=== PATIENT | male | born 1995 | race American Indian/Alaskan Native ===

== ENCOUNTER 2021-01-29 01:11 | Emergency (ER) | payer SELFPAY ==
[2021-01-29] MEDS: hydrALAZINE 20 MG/1 ML INJ IV ONE (04:40)
[2021-01-29 05:01] LABS: Bilirubin,Urine NEG (Negative); Blood,Urine SM (Negative); Color,Urine Straw (Yellow); Urobilinogen,Urine < 2.0 mg/dL (<2.0); WBC,Urine < 1.0 /HPF (0.0-6.0)
--- NOTE | 2021-01-29 05:02 | XRay Report ---
. XR chest 1V ap INDICATION / CLINICAL INFORMATION: weakness. COMPARISON: None available. FINDINGS: SUPPORT DEVICES: None. HEART /PULMONARY VASCULATURE: No significant abnormality. LUNGS / PLEURA: No significant pulmonary or pleural abnormality. No pneumothorax. ADDITIONAL FINDINGS: No significant additional findings. IMPRESSION: 1. No acute findings. Signer Name: Edwin Mcadams MD Signed: 01/29/2021 4:57 AM Workstation Name: [id number]
[2021-01-29 06:03] LABS: Basophils % (Auto) 0.5 % (0.0-1.8); Eosinophils # (Auto) 0.1 K/mm3 (0.0-0.4); Eosinophils % (Auto) 1.3 % (0.0-4.3); Hematocrit 45.3 % (35.5-45.6); Hemoglobin 14.9 gm/dl (11.8-15.2); Lymphocytes # (Auto) 4.3 K/mm3 (1.2-5.4); Lymphocytes % (Auto) 47.5 % (13.4-35.0); Mean Corpuscular HGB Conc 33 % (32-34); Mean Corpuscular Volume 83 fl (84-94); Monocytes # (Auto) 0.5 K/mm3 (0.0-0.8); Platelet Count 198 K/mm3 (140-440); Red Blood Count 5.47 M/mm3 (3.65-5.03); Red Cell Distribution Width 13.7 % (13.2-15.2)
[2021-01-29 06:24] LABS: Alanine Aminotransferase 24 units/L (7-56); Albumin 4.5 g/dL (3.9-5); BUN/Creatinine Ratio 12; Blood Urea Nitrogen 21 mg/dL (9-20); Calcium 9.7 mg/dL (8.4-10.2); Hemolysis Index 11
--- NOTE | 2021-01-29 06:27 | Emergency Department Report ---
<PATIENCE BARNHART - Last Filed: 01/29/21 06:47> ED General Adult HPI - General Chief complaint: Urogenital-Male Stated complaint: PENIS IS BLEEDING Source: patient Mode of arrival: Ambulatory Limitations: No Limitations - History of Present Illness Initial comments: Patient is a 25-year-old -[place] male with a history of poorly controlled hypertension who presents to the ED with complaint of acute onset persistent hematuria intermittently for the last 8 hours. Patient states that he has had 2 episodes of hematuria with no pain. Patient states that he has never been prescribed any blood pressure medications although he always has chronic hypertension. Patient denies dysuria, urinary frequency and urgency, low back pain, abdominal pain, testicular pain, fever, chills, cough, chest pain, shortness of breath, headache, dizziness, syncope, lightheadedness, back pain, traumatic injury, heavy lifting or or change in vision. MD Complaint: Hematuria; elevated blood pressure -: Sudden, hour(s) (8) Location: head, genitals Radiation: non-radiation Severity scale (0 -10): 0 Quality: dull Consistency: intermittent Improves with: none Worsens with: none Associated Symptoms: other (Hematuria). denies: denies other symptoms, confusion, chest pain, cough, diaphoresis, fever/chills, headaches, loss of appetite, nausea/vomiting, rash, shortness of breath, syncope, weakness Treatments Prior to Arrival: none - Related Data Previous Rx's Medication Instructions Recorded Last Taken Type amLODIPine 10 mg PO DAILY #30 tab 01/29/21 Unknown Rx Allergies Allergy/AdvReac Type Severity Reaction Status Date / Time No Known Allergies Allergy Verified 01/29/21 04:49 ED Review of Systems Constitutional: other (Elevated blood pressure). denies: chills, fever Eyes: denies: eye pain, eye discharge, vision change ENT: denies: ear pain, throat pain Respiratory: denies: cough, shortness of breath, wheezing Cardiovascular: denies: chest pain, palpitations Endocrine: no symptoms reported Gastrointestinal: denies: abdominal pain, nausea, diarrhea Genitourinary: hematuria. denies: urgency, dysuria, frequency, discharge, testicular pain, testicular mass Musculoskeletal: denies: back pain, joint swelling, arthralgia Skin: denies: rash, lesions Neurological: denies: headache, weakness, paresthesias Psychiatric: denies: anxiety, depression Hematological/Lymphatic: denies: easy bleeding, easy bruising ED Past Medical Hx - Past Medical History Previous Medical History?: No - Surgical History Past Surgical History?: No - Medications Home Medications: Home Medications Medication Instructions Recorded Confirmed Last Taken Type amLODIPine 10 mg PO DAILY #30 tab 01/29/21 Unknown Rx ED Physical Exam - General Limitations: No Limitations General appearance: alert, in no apparent distress - Head Head exam: Present: atraumatic, normocephalic, normal inspection - Eye Eye exam: Present: normal appearance, PERRL, EOMI Pupils: Present: normal accommodation - ENT ENT exam: Present: normal exam, normal orophraynx, mucous membranes moist, TM's normal bilaterally, normal external ear exam - Neck Neck exam: Present: normal inspection, full ROM - Respiratory Respiratory exam: Present: normal lung sounds bilaterally. Absent: respiratory distress, wheezes, rales, rhonchi, chest wall tenderness, accessory muscle use, decreased breath sounds, other - Cardiovascular Cardiovascular Exam: Present: regular rate, normal rhythm, normal heart sounds. Absent: systolic murmur, diastolic murmur, rubs, gallop - GI/Abdominal GI/Abdominal exam: Present: soft, normal bowel sounds. Absent: distended, tenderness, guarding, hyperactive bowel sounds, hypoactive bowel sounds, mass - exam: Present: normal inspection. Absent: testicular tenderness, scrotal swelling, vertical testicular lie External exam: Present: normal external exam. Absent: lesions, ecchymosis, bleeding - Extremities Exam Extremities exam: Present: normal inspection, full ROM, normal capillary refill - Back Exam Back exam: Present: normal inspection, full ROM. Absent: tenderness, CVA t enderness (R), CVA tenderness (L), muscle spasm, paraspinal tenderness, vertebral tenderness - Neurological Exam Neurological exam: Present: alert, oriented X3, CN II-XII intact, normal gait, reflexes normal - Psychiatric Psychiatric exam: Present: normal affect, normal mood - Skin Skin exam: Present: warm, dry, intact, normal color. 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 XR chest 1V ap INDICATION / CLINICAL INFORMATION: weakness. COMPARISON: None available. FINDINGS: SUPPORT DEVICES: None. HEART /PULMONARY VASCULATURE: No significant abnormality. LUNGS / PLEURA: No significant pulmonary or pleural abnormality. No pneumothorax. ADDITIONAL FINDINGS: No significant additional findings. IMPRESSION: 1. No acute findings. Signer Name: Richard Mcadams MD Signed: 01/29/2021 4:57 AM Workstation Name: [id number] Transcribed By: JS Dictated By: RICHARD MCADAMS MD Electronically Authenticated By: RICHARD MCADAMS MD Signed Date/Time: 01/29/21456 DD/ 6 TD/TT: - Medical Decision Making This is a 25-year-old -[place] male with a history of poorly controlled hypertension who presents to the ED with complaint of acute onset persistent hematuria intermittently for the last 8 hours. Patient states that he has had 2 episodes of hematuria with no pain. Patient states that he has never been prescribed any blood pressure medications although he always has chronic hypertension. In the ED, patient is alert and oriented x3 and is not in any distress. In the ED, patient's vital signs showed significantly elevated hypertension of 243/159 with oxygen saturation of 100% in room air. 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 Chest x-ray showed no acute cardiopulmonary abnormalities or pneumonitis. Patient was treated in the ED with hydralazine 20 mg IV x1. Patient was also given amlodipine 10 mg p.o. x1. Lab test results were reviewed and showed BUN of 21 and creatinine of 1.8. The initial troponin level was however nonactionable. Patient she will be observed in the ED and a second troponin should be drawn about 3 hours and the patient vital signs were rechecked at that time. Patient care was transferred to WINDY Grossman at shift change at 0700 hrs. She shall review all lab test results, repeat vital signs and disposition the patient accordingly. - Differential Diagnosis UTI; Prostatitis; Kidney stones; STD; ACS; Glomerulonephritis ED Disposition Clinical Impression: Uncontrolled stage 2 hypertension, Hematuria of unknown etiology, Kidney disease Disposition: 01 HOME / SELF CARE / HOMELESS Is pt being admited?: No Does the pt Need Aspirin: No Condition: Stable Instructions: Hypertension, Adult, [id number], Hematuria, Adult, Hypertension (ED) Prescriptions: amLODIPine 10 mg PO DAILY #30 tab Referrals: GAURAV LESTER MD [Staff Physician] - 2-3 Days Time of Disposition: 06:27 Print Language: BOLIVIAN <KAMALJIT ESPINOZA - Last Filed: 01/29/21 10:14> ED Review of Systems ROS: Stated complaint: PENIS IS BLEEDING Other details as noted in HPI ED Course Vital Signs 01/29/21 01/29/21 01/29/21 01:15 04:30 06:50 Temperature 97.9 F Pulse Rate 100 H 111 H Respiratory 18 18 20 Rate Blood Pressure 214/159 Blood Pressure 243/159 221/162 [Left] O2 Sat by Pulse 97 100 100 Oximetry 01/29/21 01/29/21 09:46 09:57 Temperature Pulse Rate 93 H Respiratory 17 Rate Blood Pressure Blood Pressure 208/138 [Left] O2 Sat by Pulse 100 99 Oximetry ED Medical Decision Making - Lab Data Result diagrams: 01/29/21 05:36 01/29/21 05:36 Lab Results 01/29/21 01/29/21 01/29/21 Range/Units 04:54 05:36 05:36 WBC 9.0 (4.5-11.0) K/mm3 RBC 5.47 H (3.65-5.03) M/mm3 Hgb 14.9 (11.8-15.2) gm/dl Hct 45.3 (35.5-45.6) % MCV 83 L (84-94) fl MCH 27 L (28-32) pg MCHC 33 (32-34) % RDW 13.7 (13.2-15.2) % Plt Count 198 (140-440) K/mm3 Lymph % (Auto) 47.5 H (13.4-35.0) % [place] % (Auto) 6.0 (0.0-7.3) % Eos % (Auto) 1.3 (0.0-4.3) % Baso % (Auto) 0.5 (0.0-1.8) % Lymph # (Auto) 4.3 (1.2-5.4) K/mm3 [place] # (Auto) 0.5 (0.0-0.8) K/mm3 Eos # (Auto) 0.1 (0.0-0.4) K/mm3 Baso # (Auto) 0.0 (0.0-0.1) K/mm3 Seg Neutrophils % 44.7 (40.0-70.0) % Seg Neutrophils # 4.0 (1.8-7.7) K/mm3 Sodium 138 (137-145) mmol/L Potassium 3.6 (3.6-5.0) mmol/L Chloride 98.2 (98-107) mmol/L Carbon Dioxide 26 (22-30) mmol/L Anion Gap 17 mmol/L BUN 21 H (9-20) mg/dL Creatinine 1.8 H (0.8-1.3) mg/dL Estimated GFR 46 ml/min BUN/Creatinine Ratio 12 % Glucose 104 H (75-100) mg/dL Calcium 9.7 (8.4-10.2) mg/dL Total Bilirubin 0.40 (0.1-1.2) mg/dL AST 20 (5-40) units/L ALT 24 (7-56) units/L Alkaline Phosphatase 108 (35-129) units/L Troponin T < 0.010 (0.00-0.029) ng/mL NT-Pro-B Natriuret Pep (0-450) pg/mL Total Protein 8.3 H (6.3-8.2) g/dL Albumin 4.5 (3.9-5) g/dL Albumin/Globulin Ratio 1.2 % TSH (0.270-4.200) mlU/mL Urine Color Straw (Yellow) Urine Turbidity Clear (Clear) Urine pH 7.0 (5.0-7.0) Ur Specific [place] 1.012 (1.003-1.030) Urine Protein 30 mg/dl (Negative) mg/dL Urine Glucose (UA) Neg (Negative) mg/dL Urine Ketones Neg (Negative) mg/dL Urine Blood Sm (Negative) Urine Nitrite Neg (Negative) Urine Bilirubin Neg (Negative) Urine Urobilinogen < 2.0 (<2.0) mg/dL Ur Leukocyte Esterase Neg (Negative) Urine WBC (Auto) < 1.0 (0.0-6.0) /HPF Urine RBC (Auto) 2.0 (0.0-6.0) /HPF 01/29/21 01/29/21 Range/Units 08:46 08:46 WBC (4.5-11.0) K/mm3 RBC (3.65-5.03) M/mm3 Hgb (11.8-15.2) gm/dl Hct (35.5-45.6) % MCV (84-94) fl MCH (28-32) pg MCHC (32-34) % RDW (13.2-15.2) % Plt Count (140-440) K/mm3 Lymph % (Auto) (13.4-35.0) % [place] % (Auto) (0.0-7.3) % Eos % (Auto) (0.0-4.3) % Baso % (Auto) (0.0-1.8) % Lymph # (Auto) (1.2-5.4) K/mm3 [place] # (Auto) (0.0-0.8) K/mm3 Eos # (Auto) (0.0-0.4) K/mm3 Baso # (Auto) (0.0-0.1) K/mm3 Seg Neutrophils % (40.0-70.0) % Seg Neutrophils # (1.8-7.7) K/mm3 Sodium (137-145) mmol/L Potassium (3.6-5.0) mmol/L Chloride (98-107) mmol/L Carbon Dioxide (22-30) mmol/L Anion Gap mmol/L BUN (9-20) mg/dL Creatinine (0.8-1.3) mg/dL Estimated GFR ml/min BUN/Creatinine Ratio % Glucose (75-100) mg/dL Calcium (8.4-10.2) mg/dL Total Bilirubin (0.1-1.2) mg/dL AST (5-40) units/L ALT (7-56) units/L Alkaline Phosphatase (35-129) units/L Troponin T < 0.010 (0.00-0.029) ng/mL NT-Pro-B Natriuret Pep 219.9 (0-450) pg/mL Total Protein (6.3-8.2) g/dL Albumin (3.9-5) g/dL Albumin/Globulin Ratio % TSH 2.140 (0.270-4.200) mlU/mL Urine Color (Yellow) Urine Turbidity (Clear) Urine pH (5.0-7.0) Ur Specific [place] (1.003-1.030) Urine Protein (Negative) mg/dL Urine Glucose (UA) (Negative) mg/dL Urine Ketones (Negative) mg/dL Urine Blood (Negative) Urine Nitrite (Negative) Urine Bilirubin (Negative) Urine Urobilinogen (<2.0) mg/dL Ur Leukocyte Esterase (Negative) Urine WBC (Auto) (0.0-6.0) /HPF Urine RBC (Auto) (0.0-6.0) /HPF - Medical Decision Making Patient handed off to me by Patience Barnhart PA-C pending repeat troponin. Blood pressure improved to 202/138. Heart rate is normal and patient is well- appearing. Per SOFIA Ramírez, patient to start on amlodipine and follow-up with primary care for further evaluation and treatment. Discussed in detail with patient signs and symptoms that should prompt immediate return to the ED, he verbalizes understanding. Critical care attestation.: If time is entered above; I have spent that time in minutes in the direct care of this critically ill patient, excluding procedure time.
[2021-01-29] MEDS: amLODIPine 5 MG TAB PO ONE (07:31)
[2021-01-29 10:43] VITALS: BP 199/133
--- NOTE | 2021-01-29 18:39 | Electrocardiograph Report ---
[facility] Test Date: 2021-01-29 Test Time: 04:57:28 Pat Name: SHAWNEE LI Department: Room: Gender: M Manager Budget: JUAN ANTONIO : 1995 Requested By: PATIENCE BARNHART Order Number: [id number] Reading MD: Sheyla Champion Measurements Intervals [place] Rate: 100 P: 19 MO: 161 QRS: 77 QRSD: 91 T: -33 QT: 344 QTc: 444 Interpretive Statements Sinus tachycardia Probable anteroseptal infarct, old Left ventricle hypertrophy No previous ECG available for comparison Electronically Signed On 01-29-2021 18:39:34 EST by Sheyla Champion
== END 2021-01-29 10:44 | disposition home or self-care (01) ==
LOC: ED 01:11
DX: N28.9 Disorder of kidney and ureter, unspecified (principal); I10 Essential (primary) hypertension; R31.9 Hematuria, unspecified
CPT/HCPCS: 36415; 71045; 80053; 81001; 83880; 84443; 84484; 85025; 93005; 96374; 99284; J0360

== ENCOUNTER 2021-10-31 13:18 | Emergency (ER) | payer SELFPAY ==
[2021-10-31] MEDS ORDERED: cloNIDine 0.2 MG TAB PO ONE (14:19)
--- NOTE | 2021-10-31 14:53 | XRay Report ---
XR chest routine 2V INDICATION / CLINICAL INFORMATION: elevated bp. COMPARISON: 01/29/2021 FINDINGS: SUPPORT DEVICES: None. HEART /PULMONARY VASCULATURE: No significant abnormality. LUNGS / PLEURA: No significant pulmonary or pleural abnormality. No pneumothorax. ADDITIONAL FINDINGS: No significant additional findings. IMPRESSION: 1. No acute findings. Signer Name: Edwin Mcadams MD Signed: 10/31/2021 2:49 PM Workstation Name: [email or web address]
[2021-10-31] MEDS ORDERED: METOPROLOL TARTRATE 5 MG/5 ML INJ IV ONE (15:03)
[2021-10-31 16:16] LABS: Hematocrit 44.2 % (35.5-45.6); Hemoglobin 14.9 gm/dl (11.8-15.2); Mean Corpuscular HGB Conc 34 % (32-34); Mean Corpuscular Volume 81 fl (84-94); Platelet Count 180 K/mm3 (140-440); Red Blood Count 5.46 M/mm3 (3.65-5.03); Red Cell Distribution Width 14.1 % (13.2-15.2)
[2021-10-31 16:54] LABS: Alanine Aminotransferase 15 units/L (7-56); Albumin 4.7 g/dL (3.9-5); BUN/Creatinine Ratio 10; Blood Urea Nitrogen 27 mg/dL (9-20); Calcium 10.1 mg/dL (8.4-10.2); Hemolysis Index 37
[2021-10-31] MEDS ORDERED: hydrALAZINE 20 MG/1 ML INJ IV ONE ×2 (17:21→18:12)
[2021-10-31] MEDS ORDERED: SODIUM CHLORIDE 0.9% 1000 ML 1,000 ML IV ONE (19:50)
--- NOTE | 2021-10-31 19:55 | Emergency Department Report ---
ED General Adult HPI - General Chief complaint: High BP Stated complaint: HIGH BP PUI?: No Time Seen by Provider: 10/31/21 15:00 Source: patient Mode of arrival: Ambulatory Limitations: No Limitations - History of Present Illness Initial comments: Patient present to ED with c/o hbp, patient states he has hx of htn but has been without meds x 2 weeks. pt denies any chest pain SOB or headache -: unknown Severity scale (0 -10): 0 Consistency: constant Improves with: none, immobilization Treatments Prior to Arrival: none - Related Data Previous Rx's Medication Instructions Recorded Last Taken Type amLODIPine 10 mg PO DAILY #30 tab 01/29/21 Unknown Rx amLODIPine 10 mg PO DAILY #30 tab 10/31/21 Unknown Rx Allergies Allergy/AdvReac Type Severity Reaction Status Date / Time No Known Allergies Allergy Verified 01/29/21 04:49 ED Review of Systems ROS: Stated complaint: HIGH BP Other details as noted in HPI Constitutional: denies: chills, fever Eyes: denies: eye pain, eye discharge, vision change ENT: denies: ear pain, throat pain Respiratory: denies: cough, shortness of breath, wheezing Cardiovascular: denies: chest pain, palpitations Endocrine: no symptoms reported Gastrointestinal: denies: abdominal pain, nausea, diarrhea Genitourinary: denies: urgency, dysuria Musculoskeletal: denies: back pain, joint swelling, arthralgia Skin: denies: rash, lesions Neurological: denies: headache, weakness, paresthesias Psychiatric: denies: anxiety, depression Hematological/Lymphatic: denies: easy bleeding, easy bruising ED Past Medical Hx - Past Medical History Previous Medical History?: No Hx Hypertension: No - Social History Smoking Status: Unknown if ever smoked Substance Use Type: None - Medications Home Medications: Home Medications Medication Instructions Recorded Confirmed Last Taken Type amLODIPine 10 mg PO DAILY #30 tab 01/29/21 Unknown Rx amLODIPine 10 mg PO DAILY #30 tab 10/31/21 Unknown Rx ED Physical Exam - General Limitations: No Limitations General appearance: alert, in no apparent distress - Head Head exam: Present: atraumatic, normocephalic - Eye Eye exam: Present: normal appearance - ENT ENT exam: Present: mucous membranes moist - Neck Neck exam: Present: normal inspection - Respiratory Respiratory exam: Present: normal lung sounds bilaterally. Absent: respiratory distress - Cardiovascular Cardiovascular Exam: Present: regular rate, normal rhythm. Absent: systolic murmur, diastolic murmur, rubs, gallop - GI/Abdominal GI/Abdominal exam: Present: soft, normal bowel sounds - Rectal Rectal exam: Present: deferred - Extremities Exam Extremities exam: Present: normal inspection - Back Exam Back exam: Present: normal inspection - Neurological Exam Neurological exam: Present: alert, oriented X3 - Psychiatric Psychiatric exam: Present: normal affect, normal mood - Skin Skin exam: Present: warm, dry, intact, normal color. Absent: rash ED Course Vital Signs 10/31/21 10/31/21 10/31/21 14:11 14:17 14:27 Temperature 98.2 F Pulse Rate 117 H 82 Respiratory Rate Blood Pressure 261/119 Blood Pressure 261/195 [Right] O2 Sat by Pulse 99 99 Oximetry 10/31/21 10/31/21 10/31/21 15:20 15:31 15:45 Temperature Pulse Rate 90 92 H 77 Respiratory 15 15 14 Rate Blood Pressure 246/179 246/179 Blood Pressure [Right] O2 Sat by Pulse 100 100 99 Oximetry 10/31/21 10/31/21 10/31/21 16:00 16:01 16:15 Temperature Pulse Rate 78 82 76 Respiratory 15 15 Rate Blood Pressure 246/179 246/179 223/157 Blood Pressure [Right] O2 Sat by Pulse 98 99 Oximetry 10/31/21 10/31/21 10/31/21 16:31 16:45 17:01 Temperature Pulse Rate 74 68 70 Respiratory 17 13 13 Rate Blood Pressure 202/150 200/140 204/138 Blood Pressure [Right] O2 Sat by Pulse 99 99 99 Oximetry 10/31/21 10/31/21 10/31/21 17:15 17:31 17:45 Temperature Pulse Rate 70 76 67 Respiratory 13 15 16 Rate Blood Pressure 212/140 220/152 208/142 Blood Pressure [Right] O2 Sat by Pulse 100 100 99 Oximetry 10/31/21 10/31/21 10/31/21 18:01 18:15 18:31 Temperature Pulse Rate 69 66 84 Respiratory 18 13 17 Rate Blood Pressure 208/142 198/136 198/136 Blood Pressure [Right] O2 Sat by Pulse 100 100 100 Oximetry 10/31/21 10/31/21 10/31/21 18:45 19:01 19:15 Temperature Pulse Rate 96 H 93 H 90 Respiratory 19 22 19 Rate Blood Pressure 203/134 203/134 180/115 Blood Pressure [Right] O2 Sat by Pulse 100 100 100 Oximetry ED Medical Decision Making - Lab Data Result diagrams: 10/31/21 15:41 10/31/21 15:41 - EKG Data -: EKG Interpreted by Me - Radiology Data Radiology results: report reviewed, image reviewed - Medical Decision Making work up showed renal impairment lopressor hydralazine twice BP normalised willr efill his BP meds Critical care attestation.: If time is entered above; I have spent that time in minutes in the direct care of this critically ill patient, excluding procedure time. ED Disposition Clinical Impression: Hypertensive urgency, Uncontrolled hypertension Disposition: 01 HOME / SELF CARE / HOMELESS Is pt being admited?: No Does the pt Need Aspirin: No Condition: Stable Instructions: Hypertension, Adult, [id number], Hypertension (ED) Prescriptions: amLODIPine 10 mg PO DAILY #30 tab Referrals: PRIMARY CARE, [Primary Care Provider] - 3-5 Days
[2021-10-31 23:19] VITALS: BP 191/125
--- NOTE | 2021-11-01 10:36 | Electrocardiograph Report ---
[facility] Test Date: 2021-10-31 Test Time: 15:25:48 Pat Name: SHAWNEE LI Department: Room: Gender: M [employer]: TAWANNA : 1995 Requested By: DUSTIN WEBB Order Number: [id number] Reading MD: Heriberto Donaldson Measurements Intervals [place] Rate: 92 P: 37 ID: [id number] QRS: 83 QRSD: 86 T: -42 QT: 359 QTc: 445 Interpretive Statements Sinus rhythm nonspecific st-t Abnormal T, consider ischemia, inferior leads Compared to ECG 01/29/2021 04:57:28 T-wave abnormality now present Possible ischemia now present Sinus tachycardia no longer present Myocardial infarct finding still present Electronically Signed On 11-01-2021 10:36:37 EDT by Heriberto Donaldson
== END 2021-10-31 23:11 | disposition home or self-care (01) ==
LOC: ED 13:18
DX: I16.0 Hypertensive urgency (principal); I10 Essential (primary) hypertension
CPT/HCPCS: 36415; 71046; 80053; 83880; 84484; 85027; 93005; 96361; 96374; 96375; 96376; 99284; J0360; J7030

== ENCOUNTER 2021-11-07 04:47 | Emergency (ER) | payer SELFPAY ==
[2021-11-07 05:11] VITALS: BP 203/152
--- NOTE | 2021-11-07 06:01 | XRay Report ---
Abdomen 2 views INDICATION: Abdominal pain IMPRESSION: Mild gaseous distention of the colon. No significant small bowel distention identified. Signer Name: Brown Perez MD Signed: 11/07/2021 5:57 AM Workstation Name: [email or web address]
[2021-11-07 06:23] LABS: Hematocrit 49.9 % (35.5-45.6); Hemoglobin 16.9 gm/dl (11.8-15.2); Mean Corpuscular HGB Conc 34 % (32-34); Mean Corpuscular Volume 79 fl (84-94); Platelet Count 161 K/mm3 (140-440); Red Blood Count 6.28 M/mm3 (3.65-5.03); Red Cell Distribution Width 13.8 % (13.2-15.2)
[2021-11-07 06:31] LABS: Albumin 3.7 g/dL (3.9-5); Bilirubin,Direct 0.2 mg/dL (0-0.2)
[2021-11-07 07:07] LABS: Basophils % (Manual) 0 % (0.0-1.8); Eosinophils % (Manual) 0 % (0.0-4.3); Platelet Estimate Consistent w Auto; Total Cells Counted 100
== END 2021-11-07 18:50 | disposition left against medical advice (07) ==
LOC: ED 04:47
DX: R11.10 Vomiting, unspecified (principal); R10.9 Unspecified abdominal pain; Z53.21 Procedure and treatment not carried out due to patient leaving prior to being seen by health care provider
CPT/HCPCS: 36415; 74019; 80048; 80076; 82150; 83690; 85007; 85025